=== PATIENT | male | born 1960 ===

== ENCOUNTER 2024-10-04 10:30 | Outpatient (RCR) | payer BC, SELFPAY | END 2025-02-01 23:59 | disposition home or self-care (01) | PROVIDERS: Visit Provider Family Medicine | DX: M17.11 Unilateral primary osteoarthritis, right knee (principal); M16.0 Bilateral primary osteoarthritis of hip; M70.62 Trochanteric bursitis, left hip; M25.552 Pain in left hip; M25.562 Pain in left knee; M25.561 Pain in right knee; Z74.09 Other reduced mobility; M62.81 Muscle weakness (generalized); Z51.89 Encounter for other specified aftercare | CPT/HCPCS: 97110; 97161 ==

== ENCOUNTER 2025-06-29 14:15 | Outpatient (RCR) | payer BC, SELFPAY | END 2025-10-27 23:59 | disposition home or self-care (01) | PROVIDERS: PCP Family Medicine; Visit Provider Student in an Organized Health Care Education/Training Program | DX: M17.12 Unilateral primary osteoarthritis, left knee (principal); M76.892 Other specified enthesopathies of left lower limb, excluding foot; M11.20 Other chondrocalcinosis, unspecified site; Z51.89 Encounter for other specified aftercare | CPT/HCPCS: 97110; 97161; 97535 ==